=== PATIENT | female | born 1980 | race Caucasian/White ===

== ENCOUNTER 2020-10-29 13:24 | Emergency (ER) | payer BC, OTHER ==
--- NOTE | 2020-10-29 13:36 | ER Document Report ---
ED Medical Screen (RME) - General Chief Complaint: Nausea Stated Complaint: FEVER Time Seen by Provider: 10/29/20 13:29 Primary Care Provider: VELASQUEZ SULLIVAN NP [Primary Care Provider] - Follow up as needed Mode of Arrival: Wheelchair Information source: Patient Notes: 40-year-old female presents to ED for complaint of cough congestion sore throat chest pain nausea no vomiting but does have fever as high as 102.3 earlier today. She states she took ibuprofen just before coming to the emergency room. She is positive for COVID-19. She states she does not smoke drink or use any illicit drugs. She states she came because the coughing is getting worse and she is having more fevers. I have greeted and performed a rapid initial assessment of this patient. A comprehensive ED assessment and evaluation of the patient, analysis of test results and completion of medical decision making process will be conducted by an additional ED providers. TRAVEL OUTSIDE OF THE [place] IN LAST 30 DAYS: No - Related Data Allergies/Adverse Reactions: No Known Allergies Allergy (Verified 05/27/12 10:40) Past Medical History Psychiatric Medical History: Reports: Hx Depression Past Surgical History: Reports: Hx Section - 3 weeks ago, Hx Cholecystectomy - Immunizations Hx Diphtheria, Pertussis, Tetanus Vaccination: Yes Doctor's Discharge - Discharge Referrals: VELASQUEZ SULLIVAN NP [Primary Care Provider] - Follow up as needed
[2020-10-29 14:59] LABS: ABSOLUTE LYMPHOCYTES (AUTO) 1.5 10^3/uL (0.5-4.7); ABSOLUTE MONOCYTES (AUTO) 0.3 10^3/uL (0.1-1.4); ABSOLUTE NEUT (AUTO) 2.4 10^3/uL (1.7-8.2); BASOPHILS % (AUTO) 0.3 % (0-2); EOSINOPHILS % (AUTO) 0.3 % (0-6); HEMATOCRIT 41.5 % (36.0-47.0); HEMOGLOBIN 13.8 g/dL (12.0-15.5); LYMPHOCYTES % (AUTO) 35.5 % (13-45); MEAN CORPUSCULAR HEMOGLOBIN 27.5 pg (27.0-33.4); MEAN CORPUSCULAR HGB CONC 33.2 g/dL (32.0-36.0); MEAN CORPUSCULAR VOLUME 83 fl (80-97); MONOCYTES % (AUTO) 7.9 % (3-13); PLATELET COUNT 256 10^3/uL (150-450); RED BLOOD COUNT 5.01 10^6/uL (3.72-5.28); RED CELL DISTRIBUTION WIDTH 13.3 % (11.5-14.0); TOTAL CELLS COUNTED % (AUTO) 100 %; WHITE BLOOD COUNT 4.3 10^3/uL (4.0-10.5)
--- NOTE | 2020-10-29 15:13 | RADIOLOGY REPORT (SQ) ---
EXAM DESCRIPTION: CHEST SINGLE VIEW IMAGES COMPLETED DATE/TIME: 10/29/2020 3:02 pm REASON FOR STUDY: #1 SYNCOPE COMPARISON: 2007 EXAM PARAMETERS: NUMBER OF VIEWS: One view. TECHNIQUE: Single frontal radiographic view of the chest acquired. RADIATION DOSE: NA LIMITATIONS: None. FINDINGS: LUNGS AND PLEURA: Cannot exclude small areas of peripheral ground-glass infiltrate bilater ally. MEDIASTINUM AND HILAR STRUCTURES: No masses. Contour normal. HEART AND VASCULAR STRUCTURES: Heart normal in size. Normal vasculature. BONES: No acute findings. HARDWARE: None in the chest. OTHER: No other significant finding. IMPRESSION: Cannot exclude areas of peripheral ground-glass infiltrate bilaterally. Could represent an atypical infectious/ inflammatory process. TECHNICAL DOCUMENTATION: JOB ID: [id number] 2010 [employer]- All Rights Reserved Reading location - IP/workstation name: [email or web address]
[2020-10-29 15:24] LABS: ALBUMIN 4.1 g/dL (3.5-5.0); ALKALINE PHOSPHATASE 111 U/L (38-126); ANION GAP 14 (5-19); ASPARTATE AMINO TRANSFERASE 55 U/L (14-36); BILIRUBIN,DIRECT 0.5 mg/dL (0.0-0.4); BILIRUBIN,TOTAL 1.5 mg/dL (0.2-1.3); BLOOD UREA NITROGEN 9 mg/dL (7-20); CALCIUM 9.2 mg/dL (8.4-10.2); CARBON DIOXIDE 27 mmol/L (22-30); CHLORIDE 98 mmol/L (98-107); GLUCOSE 315 mg/dL (75-110); POTASSIUM 3.8 mmol/L (3.6-5.0); TOTAL PROTEIN 7.4 g/dL (6.3-8.2)
[2020-10-29] MEDS ORDERED: DEXAMETHASONE SOD PHOS INJ 10 MG/1 ML VIAL IV ONE (15:29)
[2020-10-29] MEDS ORDERED: NORMAL SALINE 1000 ML 1,000 ML IV ONE (15:30)
[2020-10-29 15:33] LABS: A TYPE INFLUENZA AG NEGATIVE (NEGATIVE); B INFLUENZA AG NEGATIVE (NEGATIVE)
--- NOTE | 2020-10-29 15:49 | ER Document Report ---
ED General - General Chief Complaint: Flu Symptoms Stated Complaint: FEVER Time Seen by Provider: 10/29/20 13:29 Primary Care Provider: VELASQUEZ SULLIVAN NP [NURSE PRACTITIONER] - Follow up as needed Mode of Arrival: Wheelchair TRAVEL OUTSIDE OF THE [place] IN LAST 30 DAYS: No - HPI Notes: Patient is a 40-year-old female with no significant past medical history who presents with cough. Patient states that she began feeling sick on October 18. Her son had Covid. Patient states that she had 2 inconclusive test and a positive test last week. She states that over the past several days her cough has gotten worse. She states she has shortness of breath. She has lost her sense of taste and smell. No diarrhea or vomiting. No nausea. No abdominal pain. She has been having fevers with a T-max of 102. She had a temperature of 101 Fahrenheit today and took ibuprofen. She does not have any chest pain. She does have some discomfort only when she coughs. Patient is a non-smoker. - Related Data Allergies/Adverse Reactions: No Known Allergies Allergy (Verified 10/29/20 14:27) Past Medical History - General Information source: Patient - Social History Smoking Status: Never Smoker Family History: Reviewed & Not Pertinent Psychiatric Medical History: Reports: Hx Depression Past Surgical History: Reports: Hx Section - 3 weeks ago, Hx Cholecystectomy - Immunizations Hx Diphtheria, Pertussis, Tetanus Vaccination: Yes Review of Systems - Review of Systems Notes: CONSTITUTIONAL: Positive for fever and fatigue. SKIN: No rash. HENT: No congestion, ear pain, or sore throat. CARDIOVASCULAR: No chest pain or edema. RESPIRATORY: Positive for cough and shortness of breath. GASTROINTESTINAL: No abdominal pain, nausea, vomiting, bloody stools or diarrhea. MUSCULOSKELETAL: No joint pain or swelling. NEUROLOGIC: No seizures. No headache, focal weakness or sensory changes. HEMATOLOGIC: No unusual bruising or bleeding. PSYCHIATRIC: No depression or anxiety. Physical Exam - Vital signs Vitals: Temp Pulse Resp BP Pulse Ox 98.2 F 88 16 134/85 H 92 10/29/20 13:33 10/29/20 13:33 10/29/20 13:33 10/29/20 13:33 10/29/20 13:33 - General In distress: None Notes: VITAL SIGNS: Within normal limits. GENERAL: No acute distress, non-toxic appearance. Appears fatigued. HEAD: Normal with no signs of head trauma. EYES: Conjunctiva normal, no discharge. EARS: Hearing grossly intact. NECK: Normal range of motion, no tenderness, supple, no lymphadenopathy, No adenopathy, no JVD. CHEST: Clear breath sounds bilaterally. CARDIAC: Regular rate and rhythm. VASCULAR: No Edema. ABDOMEN: Normal and soft with no tenderness MUSCULOSKELETAL: Good range of motion of all major joints. Extremities without clubbing, cyanosis or edema. NEUROLOGICAL: Alert and oriented x 3. No focal sensory or strength deficits. Speech normal. Follows commands appropriately. PSYCHIATRIC: Normal Affect, judgement and mood. SKIN: Normal appearance with no rashes or lesions. Course - Re-evaluation Re-evalutation: 10/29/20 15:49 Patient has been tested positive for Covid. She has some faint groundglass opacities on her chest x-ray. Patient states she has not been eating or drinking much. I will give her fluids and dexamethasone. Patient will be ambulated while checking her pulse ox. I do not suspect PE as she does not have any pleuritic chest pain. Patient's cardiac work-up was unremarkable. She ambulated with pulse ox in the low to mid 90s. Discussed options with the patient. She is comfortable going home. I told her to come back immediately for any worsening shortness of breath. Patient is very agreeable to the plan. I also instructed her to follow-up with her PCP as she does have a high glucose and has never been diagnosed with diabetes. She did state that she drank some juice prior to getting her blood drawn, however, I still recommended she get this evaluated. Return precautions provided. 10/29/20 15:50 10/29/20 20:34 - Vital Signs Vital signs: Temp Pulse Resp BP Pulse Ox 98.2 F 78 20 128/70 H 95 10/29/20 13:33 10/29/20 17:29 10/29/20 17:29 10/29/20 17:29 10/29/20 17:29 - Laboratory Results Result Diagrams: 10/29/20 14:42 10/29/20 14:42 Laboratory Results Interpreted: 10/29/20 10/29/20 14:42 16:00 Glucose 315 H Total Bilirubin 1.5 H Direct Bilirubin 0.5 H AST 55 H ALT 36 H Urine Protein >=500 H Urine Glucose (UA) >=500 H Urine Ketones 20 H Urine Urobilinogen 2.0 H Urine Ascorbic Acid 40 H Critical Laboratory Results Reviewed: No Critical Results - Radiology Results Critical Radiology Results Reviewed: No Critical Results - EKG Interpretation by Me EKG shows normal: Sinus rhythm Rate: Normal Rhythm: NSR When compared to previous EKG there are: Previous EKG unavailable Discharge - Discharge Clinical Impression: COVID-19, Shortness of breath Condition: Stable Disposition: HOME, SELF-CARE Instructions: COVID-19 Guidance for Persons Under Investigation Additional Instructions: Today, your blood sugar was high on testing. Please follow-up with the family doctor as you may need to be started on diabetes medications. Avoid sugary foods and make sure you are eating a healthy diet. There is concern for COVID- 19 infection, you must self isolate until you are called by the health department and are symptom-free. Please return to the ER immediately for any shortness of breath or chest pain. Referrals: VELASQUEZ SULLIVAN TITLE INVESTIGATOR [NURSE PRACTITIONER] - Follow up as needed
[2020-10-29 16:32] LABS: APPEARANCE,URINE SLIGHTLY-CLOUDY; BILIRUBIN,URINE NEGATIVE (NEGATIVE); COLOR,URINE AMBER; GLUCOSE, URINE >=500 mg/dL (NEGATIVE); KETONES,URINE 20 mg/dL (NEGATIVE); LEUKOCYTE ESTERASE,URINE NEGATIVE (NEGATIVE); NITRITE,URINE NEGATIVE (NEGATIVE); PROTEIN,URINE >=500 mg/dL (NEGATIVE)
[2020-10-29 17:30] VITALS: BP 128/70
--- NOTE | 2020-10-29 21:10 | EKG REPORT ---
SEVERITY:- ABNORMAL ECG - SINUS RHYTHM NONSPECIFIC ST-T CHANGES ANTERIOR LEADS : Confirmed by: Simon Lassiter MD 29-Oct-2020 21:09:15
== END 2020-10-29 17:30 | disposition home or self-care (01) ==
LOC: ER 13:24
DX: U07.1 COVID-19 (principal); R50.9 Fever, unspecified; R05 Cough; R06.02 Shortness of breath
CPT/HCPCS: 93005; 99285; 96361; 96374; 36415; 87040; 87086; 83690; 84703; 85025; 80053; 81001; 84484; 87804; 71045; 93010; J7030; J1100